=== PATIENT | male | born 1985 | race Caucasian/White ===

== ENCOUNTER 2018-11-28 08:47 | Day surgery (SDC) | payer OTHER ==
[~2018-11-28] VITALS: Ht 172.7 cm; Wt 96.7 kg
[~2018-11-28 08:47] MED LIST: CEFTIN500 MG PO; DICLOFENAC NA25 MG PO; FLEXERIL10 MG PO; FLOMAX 0.40.4 MG/CAP PO; GEMFIBROZIL600 MG PO; MEDROL 4MG DOSPA4 MG PO; NEURONTIN300 MG PO; NORCO 325 MG-51 TAB PO; NORCO 325 MG-7.1 TAB PO; PERCOCET 325 MG1 TA2 PO; PERCOCET 5/321 UDTAB PO; PHENERGAN 25 TA25 MG PO; TEMAZEPAM; ULTRAM 50MG TAB50 MG; VALIUM5 MG PO; VICODIN PO; ZOLOFT100 MG PO; [UNRECOGNIZED DRUG - OTHER]
[2018-11-28] MEDS ORDERED: NESINA25 PO (09:17)
[2018-11-28] MEDS ORDERED: NEURONTIN300 MG/CAP PO (09:18)
[2018-11-28] MEDS ORDERED: LOPID 600M600 MG/TAB PO (09:18)
[2018-11-28] MEDS ORDERED: PRINZIDE 12.5 M1 TAB PO (09:19)
[2018-11-28] MEDS ORDERED: GLUCOPHAGE500 MG/TAB PO (09:19)
[2018-11-28] MEDS ORDERED: NORCO 325 MG-101 TAB PO (09:19)
[2018-11-28] MEDS ORDERED: PROTONIX 40MG T40 MG PO (09:20)
[2018-11-28] MEDS ORDERED: VIAGRA100 M1 PO (09:20)
[2018-11-28 09:33] VITALS: BP 132/95; PULSE 85; TEMP 97.6
--- NOTE | 2018-11-28 09:43 | NUR ---
The patient's blood sugar was checked from blood obtained from IV start with a result of 391. The patient states "it has been running high, in the 300s". He also told the nurse "they just started me on a new insulin and I took 28 units last night at 2100". The patient does not know the name of the insulin and it is not listed on his home medication list. Dr. Raymond was infomred of all of this and he noted the information provided and would like to proceed with the procedure as scheduled.
[2018-11-28 10:50] VITALS: BP 129/87; PULSE 88; TEMP 97.7
--- NOTE | 2018-11-28 10:50 | NUR ---
Pt returned via cart to [facility]. Ambulated with SBA to recliner in bay. present in room. Pt reclined in chair and given warm blanket. VSS-see flowsheet. Given water per request. Denied needs or concerns at this time.
[2018-11-28 11:05] VITALS: BP 122/90; PULSE 85
[2018-11-28 11:20] VITALS: BP 117/84; PULSE 85
--- NOTE | 2018-11-28 11:35 | NUR ---
Pt tolerated water. Refused anything to eat at this time. VS remain stable. Discharge teaching completed with pt and , both verbalized understanding. IV removed with catheter tip intact. Pressure dressing applied. Pt taken via wheelchair to private vehicle for dc home with driving.
== END 2018-11-28 11:35 | disposition home or self-care (01) ==
LOC: SDCO 08:47
DX: K22.70 Barrett's esophagus without dysplasia (principal); K21.9 Gastro-esophageal reflux disease without esophagitis; E11.9 Type 2 diabetes mellitus without complications; Z79.84 Long term (current) use of oral hypoglycemic drugs; E78.00 Pure hypercholesterolemia, unspecified; Z79.899 Other long term (current) drug therapy; I10 Essential (primary) hypertension; F43.10 Post-traumatic stress disorder, unspecified; F41.9 Anxiety disorder, unspecified; F32.9 Major depressive disorder, single episode, unspecified
CPT/HCPCS: J2250; J3010; J7030

== ENCOUNTER 2019-11-10 12:27 | Emergency (ER) | payer OTHER ==
[~2019-11-10] VITALS: Ht 172.7 cm; Wt 99.1 kg
[~2019-11-10 12:27] MED LIST changes: +GLUCOPHAGE500 MG/TAB PO; +LOPID 600M600 MG/TAB PO; +NESINA25 PO; +NEURONTIN300 MG/CAP PO; +NORCO 325 MG-101 TAB PO; +PRINZIDE 12.5 M1 TAB PO; +PROTONIX 40MG T40 MG PO; +VIAGRA100 M1 PO
[2019-11-10 13:15] VITALS: TEMP 97.8
[2019-11-10] MEDS ORDERED: BACTRIM DS 8001 TAB PO (13:47)
[2019-11-10 14:16] VITALS: BP 135/79; PULSE 83
== END 2019-11-10 14:16 | disposition home or self-care (01) ==
LOC: COL.ER 12:27
DX: L03.90 Cellulitis, unspecified (principal); E11.9 Type 2 diabetes mellitus without complications; I10 Essential (primary) hypertension; G89.29 Other chronic pain; F43.10 Post-traumatic stress disorder, unspecified; Z79.84 Long term (current) use of oral hypoglycemic drugs